=== PATIENT | female | born 1975 | race Two or more races ===

== ENCOUNTER 2023-10-22 00:20 | Emergency (ER) | payer OTHER ==
[~2023-10-22] VITALS: Ht 152.4 cm; Wt 68.0 kg
[2023-10-22 00:31] VITALS: BP 156/82; PULSE 94; RESP 16; O2SAT 97
== END 2023-10-22 02:33 | disposition left against medical advice (07) ==
LOC: ER 00:20
DX: R50.9 Fever, unspecified (principal); R51.9 Headache, unspecified; J02.9 Acute pharyngitis, unspecified; Z53.21 Procedure and treatment not carried out due to patient leaving prior to being seen by health care provider